=== PATIENT | female | born 1945 | race Caucasian/White ===

== ENCOUNTER → 2021-02-11 | Day surgery (SDC) | payer OTHER ==
[~2021-02-11] VITALS: Ht 146.1 cm; Wt 105.3 kg
[~2021-02-11] MED LIST: ALLOPURINOL 10100 MG PO; AMOXICILLIN500 MG PO; CALCIUM MAGNES1 EACH PO; DILAUDID2 MG PO; FLEXERIL5 MG PO; GARLIC OIL1000 MG PO; HAIR, SKIN & N1 EACH PO; IBUPROFEN600 MG PO; LEVOTHYROXINE75 MC1 PO; LISINOPRIL-HCT1 EAC1 PO; ONDANSETRON ODT8 MG PO; PERCOCET 5-3251 EACH PO; PROBIOTIC1 EAC1 PO; VITAMIN B COMP1 EAC3 PO; VITAMIN D31250 MCG PO; ZOFRAN ODT4 MG SL
== END | disposition home or self-care (01) ==
LOC: FAS 07:35
DX: D05.12 Intraductal carcinoma in situ of left breast (principal); I10 Essential (primary) hypertension; K21.9 Gastro-esophageal reflux disease without esophagitis; E03.9 Hypothyroidism, unspecified; F41.9 Anxiety disorder, unspecified; M19.90 Unspecified osteoarthritis, unspecified site; M10.9 Gout, unspecified; E78.5 Hyperlipidemia, unspecified; G47.00 Insomnia, unspecified; E55.9 Vitamin D deficiency, unspecified; M72.2 Plantar fascial fibromatosis; G47.30 Sleep apnea, unspecified; Z88.8 Allergy status to other drugs, medicaments and biological substances; Z91.048 Other nonmedicinal substance allergy status
CPT/HCPCS: 78195; 93005; A9541; J2250; J2405; J2704; J3010; J7120

== ENCOUNTER 2021-04-03 12:11 | Inpatient (IN) | payer OTHER ==
[~2021-04-03] VITALS: Ht 147.3 cm; Wt 119.0 kg
[2021-04-03 14:27] LABS: BASOPHIL 0.1 % (0-2); EOSINOPHIL 0 % (0-7); HCT 42.7 % (37.0-47.0); LYMPHOCYTE 10.2 % (15-48); MCH 30.2 pg (25.0-31.0); MCHC 32.8 g/dL (32.0-36.0); MONOCYTE 2.9 % (0-12); MPV 10.7 fL (6.0-9.5); NEUTROPHIL 86.6 % (41-80); NRBC 0; PLT 163 K/uL (150-400); RBC 4.64 M/uL (4.20-5.40); RDW 14.1 % (11.5-14.0); WBC 8.5 K/uL (4.0-10.5)
[2021-04-03 14:41] LABS: INR 1.01 (0.9-1.2); PROTHROMBIN TIME 12.7 SECONDS (11.8-13.4)
[2021-04-03 14:43] LABS: D-DIMER 0.65 ug/mLFEU (0.00-0.41)
[2021-04-03 14:46] LABS: LACTIC ACID 0.9 mmol/L (0.4-1.9)
[2021-04-03 14:49] LABS: BILIRUBIN - TOTAL 0.3 mg/dL (0.2-1.0); BUN/CREAT RATIO (CALC) 22.4 RATIO; CREATININE 0.67 mg/dL (0.51-0.95); GLOBULIN (CALCULATION) 4.1 g/dL; POTASSIUM 3.5 mmol/L (3.5-5.1); TOTAL PROTEIN 7.1 g/dL (6.4-8.2)
[2021-04-03 16:46] LABS: BILIRUBIN NEGATIVE (NEGATIVE); BLOOD NEGATIVE Ery/uL (NEGATIVE); CLARITY CLEAR (CLEAR); COLOR YELLOW (YELLOW); GLUCOSE (U) NORMAL (NORMAL); LEUKOCYTES NEGATIVE Leu/uL (NEGATIVE); NITRITE NEGATIVE (NEGATIVE); PROTEIN TRACE (LOW) mg/dL (NEGATIVE); UROBILINOGEN 0.2 mg/dL (0.2-1.0); pH 7.5 (5.0-9.0)
[2021-04-03 16:54] LABS: BACTERIA 1+; MUCOUS TRACE; URINARY RBC RARE
[2021-04-04 06:24] LABS: HCT 40.3 % (37.0-47.0); HGB 12.9 g/dl (12.5-16.0); MCH 29.9 pg (25.0-31.0); MCV 93.3 fL (78.0-100.0); MPV 10.4 fL (6.0-9.5); RBC 4.32 M/uL (4.20-5.40); RDW 14.1 % (11.5-14.0); WBC 6.1 K/uL (4.0-10.5)
[2021-04-04 07:26] LABS: ALBUMIN 2.5 g/dL (3.4-5.0); BILIRUBIN - TOTAL 0.2 mg/dL (0.2-1.0); BUN/CREAT RATIO (CALC) 15.5 RATIO; C-REACTIVE PROTEIN 15.5 mg/dL (<=0.90); CREATININE 0.71 mg/dL (0.51-0.95); GLOBULIN (CALCULATION) 3.7 g/dL; POTASSIUM 3.3 mmol/L (3.5-5.1); TOTAL PROTEIN 6.2 g/dL (6.4-8.2)
--- NOTE | 2021-04-04 10:54 | NUR ---
PATIENT ASSISTED TO RESTROOM, PATIENT O2 SAT DROPPED TO 72% ON 5L ASSISTED BACK TO CHAIR. BREATHING EXERCISES TAUGHT, O2 SAT BACK TO 91%. WILL MONITOR
[2021-04-05 08:16] LABS: BASOPHIL 0 % (0-2); EOSINOPHIL 0 % (0-7); HCT 41.7 % (37.0-47.0); HGB 13.2 g/dl (12.5-16.0); LYMPHOCYTE 19.8 % (15-48); MCH 29.7 pg (25.0-31.0); MCHC 31.7 g/dL (32.0-36.0); MCV 93.9 fL (78.0-100.0); MONOCYTE 4.5 % (0-12); MPV 10.5 fL (6.0-9.5); NRBC 0; PLT 153 K/uL (150-400); RBC 4.44 M/uL (4.20-5.40); RDW 14.2 % (11.5-14.0); WBC 6.1 K/uL (4.0-10.5)
[2021-04-05 08:39] LABS: BUN/CREAT RATIO (CALC) 29.6 RATIO; CREATININE 0.54 mg/dL (0.51-0.95); POTASSIUM 4.4 mmol/L (3.5-5.1)
--- NOTE | 2021-04-05 15:29 | NUR ---
INFORMED PATIENT AND FAMILY ISHAN OF MOVE TO TCU
[2021-04-05] MEDS ORDERED: ANASTROZOLE1 MG PO (17:46)
[2021-04-06 05:11] LABS: BUN/CREAT RATIO (CALC) 29.6 RATIO; CREATININE 0.54 mg/dL (0.51-0.95); POTASSIUM 4.5 mmol/L (3.5-5.1)
--- NOTE | 2021-04-06 08:40 | NUR ---
DR. NAVARRO AND DR. COREAS (ANESTHESIA) CALLED TO FLOOR FOR DIFFICULT, EMERGENT INTUBATION IN TCU 1. PT HYPEROXYGENATED PER ROUTINE. SUCC 120MG AND PROPOFOL 160MG ADMINISTERED AT 0840 FOR INTUBATION. AFTER INTUBATION, TRANSFERRED PT TO TCU 8 AND STARTED DIPRIVAN GTT. VSS AT TIME OF TRANSFER. VEC 10MG GIVEN AFTER TRANSFER.
--- NOTE | 2021-04-06 22:57 | NUR ---
PT MARSHA IN THE HIGH 30S, PROPOFOL TURNED OFF. PT HR 57 AT THIS TIME TACHO SALEEM NOTIFED FOR A CHANGE OF SEDATION. WHILE PT AWAKE OFF SEDATION, PT OPENS EYE SPONTANEOUSLY AND FOLLOWS COMMANDS. PUPILS 2MM AND PERRLA BUT SLUGGISH. JOSEPH DRAINING ADEQUATE AMOUNTS OF YELLOW URINE. TURNING PT Q2HR.
[2021-04-07 05:58] LABS: ALBUMIN 2.5 g/dL (3.4-5.0); BILIRUBIN - TOTAL 0.6 mg/dL (0.2-1.0); CREATININE 0.71 mg/dL (0.51-0.95); GLOBULIN (CALCULATION) 3.7 g/dL; MAGNESIUM 2.2 mg/dL (1.8-2.4); PHOSPHORUS 4.1 mg/dL (2.6-4.7); POTASSIUM 4.9 mmol/L (3.5-5.1); TOTAL PROTEIN 6.2 g/dL (6.4-8.2)
--- NOTE | 2021-04-07 06:21 | NUR ---
PT DAUGHTER AND NEXT OF KIN (ISHAN) CALLED FOR UPDATE, GIVEN UPDATE AND DAUGHTER STATES SHE WANTS TO "BE REALISTIC" AND NO CAUSE MORE HARM THAN GOOD. PT DAUGHTER ULTIMATELY DECIDED SHE WANTS HER MOTHER CODE STATUS CHANGED FULL TO DNR. WANTING TO CONTINUE WITH ALL OTHER EFFORTS. HARPER WHITE NOTIFIED.
--- NOTE | 2021-04-07 06:26 | NUR ---
PT BRADEN MARRIAGE RING REMOVED FROM RING FINGER WHICH IS SWOLLEN, AND PLACED IN VERY FRONT POCKET OF PATIENT PURSE.
[2021-04-07 06:39] LABS: BASOPHIL 0.3 % (0-2); EOSINOPHIL 0 % (0-7); HGB 13.9 g/dl (12.5-16.0); LYMPHOCYTE 11.2 % (15-48); MCH 30.3 pg (25.0-31.0); MCHC 32.3 g/dL (32.0-36.0); MCV 93.9 fL (78.0-100.0); MONOCYTE 4.3 % (0-12); MPV 10.7 fL (6.0-9.5); NEUTROPHIL 80.9 % (41-80); NRBC 0; PLT 253 K/uL (150-400); RBC 4.58 M/uL (4.20-5.40); RDW 14.5 % (11.5-14.0)
--- NOTE | 2021-04-07 18:14 | NUR ---
SPOKE WITH DAUGHTER ISHAN NUMEROUS TIMES DURING DAY. ISHAN VISITED MOTHER AND ZOOM CALL INITIATED BETWEEN REST OF FAMILY. [employer] HERE FOR PRAYERS AND TO ANNOINT PATIENT.
--- NOTE | 2021-04-07 21:20 | NUR ---
PATIENT MOVED FROM TCU8 TO ICU 2 WITHOUT INCIDENT PATIENT BAGGED WITH AMBU BAG AND PEEP VALVE AT +20
--- NOTE | 2021-04-08 01:30 | NUR ---
COMPUTER SYSTEM MALFUNCTION POST PLASMA TRANSFUSION. CONVALESCENT PLASMA TRANSFUSED WITHOUT REACTIONS. DOUBLE CHECKED WITH ALONDRA FLORES. VITAL SIGNS DOCUMENTED AND BLOOD SHEET FILLED AND PLACED IN CHART. BLOOD CONSENT VERIFIED PRIOR TO ADMINISTRATION BY ISHAN (DAUGHTER).
--- NOTE | 2021-04-08 04:51 | NUR ---
LEVO AT 5MCG/MIN AT SHIFT REPORT. PT STABLE THROUGHOUT SHIFT, TITRATED LEVOPHED TO 7MCG/MIN AT 2145 FOLLOWING BP OF 85/30. BP INCREASED TO 232/72 AT 0030 FOLLOWING A TURN. BP CUFF CHANGED AND RECYCLED. VERSED INCREASED FROM 6MG TO 8MG. PT AWAKE AND SHAKING BED RAILS. LEVOPHED TITRATED DOWN TO 5MCG/MIN AT 0045. LEVO TITRATED DOWN TO 3MCG/MIN AT 0115. BP 184/41 LEV[place] 1MCG[place] [address]. BP 177/49. 0457- LEVO REMAINS AT 1MCG/MIN BP IS LABILE AND PT BECOMES HYPOTENSION WHEN LEVO IS SHUT OFF. TITRATED BACK AND FORTH FROM 1MCG/MIN TO OMCG/MIN AND BACK SEVERAL TIMES, PER PROTOCOL.
[2021-04-08 05:30] LABS: BASOPHIL 0.3 % (0-2); EOSINOPHIL 0 % (0-7); HCT 38.2 % (37.0-47.0); HGB 12.3 g/dl (12.5-16.0); LYMPHOCYTE 11.2 % (15-48); MCH 29.9 pg (25.0-31.0); MCHC 32.2 g/dL (32.0-36.0); MCV 92.7 fL (78.0-100.0); MONOCYTE 4.5 % (0-12); MPV 11.2 fL (6.0-9.5); NEUTROPHIL 81.9 % (41-80); NRBC 0; PLT 199 K/uL (150-400); RBC 4.12 M/uL (4.20-5.40); RDW 14.3 % (11.5-14.0); WBC 13.3 K/uL (4.0-10.5)
[2021-04-08 05:35] LABS: ALBUMIN 2.3 g/dL (3.4-5.0); BILIRUBIN - TOTAL 0.4 mg/dL (0.2-1.0); BUN/CREAT RATIO (CALC) 47.6 RATIO; CREATININE 0.63 mg/dL (0.51-0.95); GLOBULIN (CALCULATION) 3.1 g/dL; MAGNESIUM 2.1 mg/dL (1.8-2.4); POTASSIUM 4.6 mmol/L (3.5-5.1); TOTAL PROTEIN 5.4 g/dL (6.4-8.2)
[2021-04-09 05:35] LABS: BASOPHIL 0.1 % (0-2); EOSINOPHIL 0 % (0-7); HCT 40.6 % (37.0-47.0); LYMPHOCYTE 14.3 % (15-48); MCV 93.5 fL (78.0-100.0); MONOCYTE 5.3 % (0-12); MPV 10.9 fL (6.0-9.5); NEUTROPHIL 77.9 % (41-80); NRBC 0; PLT 165 K/uL (150-400); RBC 4.34 M/uL (4.20-5.40); RDW 14.6 % (11.5-14.0)
[2021-04-09 05:44] LABS: WBC 7.6 K/uL (4.0-10.5)
--- NOTE | 2021-04-09 05:51 | NUR ---
PATIENT DESAT ON MONITOR TO 87%. A, ABG OBTAINED PO2 ON ABG WAS 47.9. PATIENT INCREASED BACK TO 100% ON VENT RESULTS GIVEN TO JO-ANN SMITH RN
[2021-04-09 06:51] LABS: BILIRUBIN - TOTAL 0.3 mg/dL (0.2-1.0); BUN/CREAT RATIO (CALC) 63.8 RATIO; CREATININE 0.47 mg/dL (0.51-0.95); GLOBULIN (CALCULATION) 3.5 g/dL; POTASSIUM 4.9 mmol/L (3.5-5.1); TOTAL PROTEIN 5.5 g/dL (6.4-8.2)
[2021-04-09 07:21] LABS: MAGNESIUM 2.4 mg/dL (1.8-2.4)
--- NOTE | 2021-04-09 10:53 | NUR ---
0730- [facility] CALLED PER JAZZMINE RT REQUEST. PT DESATED TO 78% ON FIO2 100% PT SUCTIONED AND BAG, AFTER BAGGING PT O2 SAT 100% DR. CHAVARRIA AT BEDSIDE NO NEW ORDERS AT THIS TIME 0750 PT DESATED 79% SUCTIONED PT, PT BAGGED AGAIN, RT CALLED TO ROOM AFTER PT BAGGED PT BACK TO 100% 0815 PT DESATED TO 80% DR. CHAVARRIA AND I AT PT BEDSIDE, PT BAGGED. JAZZMINE RT CALLED TO BEDSIDE. VENT SETTINGS ADJUSTED BY DR. CHAVARRIA . TV INCREASED TO 600 AND PEEP INCREASED TO 14
--- NOTE | 2021-04-09 11:34 | NUR ---
0990- CALLED ISHAN PT DAUGHTER BACK WITH UPDATE ON PT CONDITION. 1005 CALLED ISHAN PT DAUGHTER PER HER REQUEST, PHONE PLACE TO PT EAR TO LISTEN TO DAUGHTER. ZOOM CALL OFFERED AND DECLINED AT THIS TIME
[2021-04-10 05:35] LABS: BASOPHIL 0.3 % (0-2); EOSINOPHIL 0 % (0-7); HGB 11.7 g/dl (12.5-16.0); LYMPHOCYTE 8.1 % (15-48); MCH 30.2 pg (25.0-31.0); MCHC 32.5 g/dL (32.0-36.0); MONOCYTE 3.3 % (0-12); MPV 11.3 fL (6.0-9.5); NEUTROPHIL 84.6 % (41-80); NRBC 0; PLT 170 K/uL (150-400); RBC 3.87 M/uL (4.20-5.40); RDW 14.6 % (11.5-14.0); WBC 9.9 K/uL (4.0-10.5)
[2021-04-10 06:03] LABS: ALBUMIN 1.8 g/dL (3.4-5.0); BILIRUBIN - TOTAL 0.2 mg/dL (0.2-1.0); CREATININE 0.5 mg/dL (0.51-0.95); GLOBULIN (CALCULATION) 2.8 g/dL; MAGNESIUM 2.2 mg/dL (1.8-2.4); PHOSPHORUS 2.1 mg/dL (2.6-4.7); TOTAL PROTEIN 4.6 g/dL (6.4-8.2)
[2021-04-10 10:19] LABS: IRON % SATURATION 36.1 %SAT (20-50)
--- NOTE | 2021-04-11 00:53 | NUR ---
PT DESATTING THROUGHOUT NIGHT, RT AWARE AND HARPER WHITE AT BEDSIDE MULTIPLE TIMES. PATIENT DROPPING SATS INTO MID 70S, PT BAGGED AND SUCTION WITH LITTLE SECRETION OBTAINED. PT RESPONDS WELL TO BAGGING. PT SECRETIONS ARE THIN AND BLOODY. PT BEGAN HAVING RETRACTIONS DURING LAST DESATURATION. NEURO ASSESSMENT REMAINS THE SAME. PT SEDATED AND WHEN SEDATION PAUSED PT RESPONDS TO NAME, MATERIALS PLANNER/PRODUCTION PLANNER HANDS EQUALLY ON COMMAND. EYES ON SWOLLEN AND PT SEEMS UNABLE TO OPEN R/T TO THE ORIBITAL SWELLING. PERRLA WITH 2MM PUPILS. CXR OBTAINED EARLY, BREATH SOUNDS PRESENT BILATERALLY BUT SEVERELY DIMINISHED ON INSPIRATIONS. ISHAN, DAUGHTER IS AWARE OF DESATURATIONS AND TALKED TO PT ON THE PHONE DURING NIGHT.
--- NOTE | 2021-04-11 12:37 | NUR ---
RD contacted Dr Walls re: new recommendations for TF's. recs included changing formula to Jevity 1.2, keeping goal @ 40cc/hr. Additional protein needs met with Proteinex1.5 2 bottles BID : total 4 bottles per day. full assessment placed in [facility]; approved rec's.
[2021-04-12 04:21] LABS: BASOPHIL 0.1 % (0-2); EOSINOPHIL 0 % (0-7); HCT 35.7 % (37.0-47.0); HGB 11.5 g/dl (12.5-16.0); LYMPHOCYTE 2.8 % (15-48); MCH 29.3 pg (25.0-31.0); MCHC 32.2 g/dL (32.0-36.0); MCV 90.8 fL (78.0-100.0); MONOCYTE 2.7 % (0-12); MPV 11.4 fL (6.0-9.5); NEUTROPHIL 91.3 % (41-80); NRBC 0; PLT 141 K/uL (150-400); RBC 3.93 M/uL (4.20-5.40); RDW 14.4 % (11.5-14.0); WBC 16.2 K/uL (4.0-10.5)
[2021-04-12 04:43] LABS: ALBUMIN 1.7 g/dL (3.4-5.0); BILIRUBIN - TOTAL 0.3 mg/dL (0.2-1.0); BUN/CREAT RATIO (CALC) 132.1 RATIO; CREATININE 0.28 mg/dL (0.51-0.95); GLOBULIN (CALCULATION) 3.3 g/dL; MAGNESIUM 2.5 mg/dL (1.8-2.4); POTASSIUM 4.8 mmol/L (3.5-5.1)
--- NOTE | 2021-04-12 06:30 | NUR ---
PT DESATTED TONIGHT DURING TURN. PT ON SIDE DURING CLEAN UP FROM BM, PT PUSHING TO GET ONTO BACK, THEN STARTED TO DESATURATE. VENT HYPEROXYGENATED TO 100% DESAT LOW 56. PT QUICKLY TURNED TO BACK AND SWITCHED FROM VENT TO BAG. BAGGED PATIENT FOR APPROX 3 MINUTES AND SATURATIONS 100%. PT VENT SETTINGS RETURNED TO FIO2 75%. PT DOING WELL. HARPER WHITE NOTIFIED, NO NEW ORDERS. ISHAN, DAUGHTER, UPDATED ON STATUS.
[2021-04-13 07:07] LABS: HBSAG SCREEN Negative (Negative); HEP B CORE AB, TOT Negative (Negative); HEP C VIRUS AB <0.1 (0.0-0.9)
[2021-04-13 07:55] LABS: BASOPHIL 0.1 % (0-2); EOSINOPHIL 0 % (0-7); HCT 33.4 % (37.0-47.0); HGB 11.2 g/dl (12.5-16.0); LYMPHOCYTE 5.6 % (15-48); MCH 30.5 pg (25.0-31.0); MCHC 33.5 g/dL (32.0-36.0); MONOCYTE 4.7 % (0-12); NRBC 0; PLT 145 K/uL (150-400); RBC 3.67 M/uL (4.20-5.40); RDW 14.5 % (11.5-14.0); WBC 9.4 K/uL (4.0-10.5)
[2021-04-13 08:15] LABS: ALBUMIN 1.7 g/dL (3.4-5.0); BILIRUBIN - TOTAL 0.3 mg/dL (0.2-1.0); CREATININE 0.5 mg/dL (0.51-0.95); GLOBULIN (CALCULATION) 3.1 g/dL; MAGNESIUM 2.6 mg/dL (1.8-2.4); PHOSPHORUS 3.1 mg/dL (2.6-4.7); TOTAL PROTEIN 4.8 g/dL (6.4-8.2)
[2021-04-14 09:09] LABS: BASOPHIL 0.1 % (0-2); EOSINOPHIL 0 % (0-7); HCT 31.8 % (37.0-47.0); HGB 10.4 g/dl (12.5-16.0); LYMPHOCYTE 6.2 % (15-48); MCH 30.1 pg (25.0-31.0); MCHC 32.7 g/dL (32.0-36.0); MCV 92.2 fL (78.0-100.0); MONOCYTE 4.6 % (0-12); MPV 12.4 fL (6.0-9.5); NEUTROPHIL 87.3 % (41-80); NRBC 0; PLT 116 K/uL (150-400); RBC 3.45 M/uL (4.20-5.40); RDW 14.6 % (11.5-14.0); WBC 8.9 K/uL (4.0-10.5)
[2021-04-14 10:08] LABS: ALBUMIN 1.7 g/dL (3.4-5.0); BILIRUBIN - TOTAL 0.5 mg/dL (0.2-1.0); BUN/CREAT RATIO (CALC) 89.2 RATIO; C-REACTIVE PROTEIN 1.3 mg/dL (<=0.90); CREATININE 0.65 mg/dL (0.51-0.95); GLOBULIN (CALCULATION) 3.3 g/dL; POTASSIUM 5.4 mmol/L (3.5-5.1)
--- NOTE | 2021-04-15 10:08 | NUR ---
04/15/21 A family meeting was arranged with Leticia Mack, daughter, , for today at 1:[address] Sutton and this social media marketer to discuss end of life care.
[2021-04-15 12:12] LABS: BASOPHIL 0.1 % (0-2); EOSINOPHIL 0 % (0-7); HCT 33.7 % (37.0-47.0); HGB 10.8 g/dl (12.5-16.0); LYMPHOCYTE 6.1 % (15-48); MCH 29.8 pg (25.0-31.0); MCV 93.1 fL (78.0-100.0); MONOCYTE 6.2 % (0-12); MPV 11.9 fL (6.0-9.5); NEUTROPHIL 86.3 % (41-80); NRBC 0; PLT 117 K/uL (150-400); RBC 3.62 M/uL (4.20-5.40); RDW 14.4 % (11.5-14.0); WBC 8.5 K/uL (4.0-10.5)
--- NOTE | 2021-04-15 12:57 | NUR ---
1220 PT DESATTING TO 70'S. PT WITH BLOODY SECRETIONS FROM ETT. DR ESQUEDA NOTIFIED. RT AT THE BEDSIDE. PT SATS BACK UP TO 90'S AFTER LAVAGE AND SUCTION.
[2021-04-15 13:22] LABS: ALBUMIN 1.7 g/dL (3.4-5.0); ALKALINE PHOSHATASE 87 U/L (46-116); ALT 103 U/L (14-59); AST 39 U/L (15-37); BILIRUBIN - TOTAL 0.4 mg/dL (0.2-1.0); BUN 61 mg/dL (7-18); BUN/CREAT RATIO (CALC) 101.7 RATIO; C-REACTIVE PROTEIN < 0.20 mg/dL (<=0.90); CHLORIDE 107 mmol/L (98-107); CO2 (BICARBONATE) 29 mmol/L (21-32); GLOBULIN (CALCULATION) 3.1 g/dL; GLUCOSE 157 mg/dL (74-106); POTASSIUM 4.7 mmol/L (3.5-5.1); TOTAL PROTEIN 4.8 g/dL (6.4-8.2)
--- NOTE | 2021-04-15 16:05 | NUR ---
FAMILY OF PATIENT DECIDED TO WITHDRAW CARE AND EXTUBATE PATIENT. TIME OF 1510. [facility] CALLED AND RULED OUT DONATION. ALL LINES REMOVED. PATIENT CLEANED AND READY FOR TRANSPORT. [facility] HERE TO TAKE PATIENT.
== END 2021-04-15 16:20 | disposition expired | DRG 870 ==
LOC: FER 12:11 → FTCU 16:32 → FMS 16:32 → FTCU 04-05 15:04 → FICU 04-07 21:45
PROVIDERS: Internal Medicine; Nurse Practitioner; Physician Assistant; ADMIT Internal Medicine
PROC: 8E0ZXY6 Isolation (ICD-10-PCS; 2021-04-04)
PROC: XW033E5 Introduction of Remdesivir Anti-infective into Peripheral Vein, Percutaneous Approach, New Technology Group 5 (ICD-10-PCS; 2021-04-04)
PROC: 0BH17EZ Insertion of Endotracheal Airway into Trachea, Via Natural or Artificial Opening (ICD-10-PCS; principal; 2021-04-06)
PROC: 5A1955Z Respiratory Ventilation, Greater than 96 Consecutive Hours (ICD-10-PCS; 2021-04-06)
PROC: XW13325 Transfusion of Convalescent Plasma (Nonautologous) into Peripheral Vein, Percutaneous Approach, New Technology Group 5 (ICD-10-PCS; 2021-04-07)
PROC: 3E043XZ Introduction of Vasopressor into Central Vein, Percutaneous Approach (ICD-10-PCS; 2021-04-07)
PROC: 05HN33Z Insertion of Infusion Device into Left Internal Jugular Vein, Percutaneous Approach (ICD-10-PCS; 2021-04-11)
PROC: XW0DXM6 Introduction of Baricitinib into Mouth and Pharynx, External Approach, New Technology Group 6 (ICD-10-PCS; 2021-04-15)
DX: A41.89 Other specified sepsis (principal); U07.1 COVID-19; J12.82 Pneumonia due to coronavirus disease 2019; R65.21 Severe sepsis with septic shock; J15.9 Unspecified bacterial pneumonia; J80 Acute respiratory distress syndrome; I10 Essential (primary) hypertension; E03.9 Hypothyroidism, unspecified; M10.9 Gout, unspecified; D64.9 Anemia, unspecified; Z66 Do not resuscitate; Z51.5 Encounter for palliative care; L89.321 Pressure ulcer of left buttock, stage 1; L89.311 Pressure ulcer of right buttock, stage 1; Z96.653 Presence of artificial knee joint, bilateral; Z90.49 Acquired absence of other specified parts of digestive tract; Z85.3 Personal history of malignant neoplasm of breast; Z90.710 Acquired absence of both cervix and uterus; Z98.1 Arthrodesis status; Z90.89 Acquired absence of other organs; Z79.890 Hormone replacement therapy; Z79.899 Other long term (current) drug therapy; Z88.5 Allergy status to narcotic agent; Z88.6 Allergy status to analgesic agent; Z88.8 Allergy status to other drugs, medicaments and biological substances; Z88.1 Allergy status to other antibiotic agents
CPT/HCPCS: 31500; 36415; 36600; 71045; 71275; 74018; 80048; 80053; 80202; 81001; 82550; 82607; 82728; 82803; 82962; 83540; 83550; 83605; 83615; 83735; 83880; 84100; 84145; 84484; 85025; 85379; 85610; 86140; 86704; 86706; 86708; 86803; 87340; 93005; 94002; 94640; 94762; C9399; J0360; J0456; J1100; J1170; J1650; J1885; J2060; J2185; J2250; J2405; J2704; J3010; J3370; J7030; J7040; J7050; J7060; J7120; Q9967; U0002